=== PATIENT | female | born 1980 | race Caucasian/White ===

== ENCOUNTER 2024-08-01 18:41 | Emergency (ER) | payer OTHER ==
[~2024-08-01] VITALS: Ht 172.7 cm; Wt 101.1 kg
[2024-08-01] MEDS: clindamycin 150mg capsule PO ONE (19:14)
--- NOTE | 2024-08-01 19:52 | Physician Documentation ---
HPI ~ General Chief Complaint: Medication Request Stated Complaint: RT FOOT PAINFUL RASH Time Seen by MD: 19:45 History of Present Illness HPI Comments This is a 44-year-old female history of diabetes who presents with two areas of painful rash to her right ankle and calf, patient reports she is being seen by her primary care provider for this and has been prescribed a topical antifungal though this was making the rash worse so she is switch to an antibiotic today, patient reports that she was unable to make it to the pharmacy to olive picker the prescription before the closed in his requesting 1st dose of antibiotic today. Patient reports no other acute symptoms or concerns and is able to olive picker antibiotic 1st thing in the morning, patient reports pain is currently controlled with [id number] medications. Patient reports no fever, chills, or other systemic symptoms. Medication Reconciliation Allergies: Coded Allergies: Penicillins (Verified Allergy, Unknown, 08/01/24) Past Medical History Past Medical History: Diabetes Review of Systems ROS Sores to lower leg as stated above in the HPI, otherwise all systems are reviewed and negative. Physical Exam Physical Exam Vital Signs: Temperature: 98.1, Source: Oral, Heart Rate: 103, Respiratory Rate: 16, BP: 172/93, Pulse Oximetry: 98, Weight: 101.140 Physical Exam VITALS: Reviewed and as above. GENERAL: Alert, nontoxic appearing, no apparent distress. RESPIRATORY: No increased work of breathing, no respiratory distress, speaking in full clear sentences SKIN: 2 cm x 2 cm round area of erythema to right medial ankle, 2 cm x 2 cm round area of erythema to right lateral calf both areas tender to palpation Progress Results/Orders Results/Orders Completed Orders - FRED JORDAN Clindamycin Capsule (Cleocin Capsule) (08/01/24 18:55) Medications Received in ER Medications (Trade) Dose Ordered Sig/Pillo Route PRN Reason Start Time Stop Time Status Last Admin Dose Admin (Cleocin capsule) 300 mg ONCE ONCE PO 08/01/24 18:55 08/01/24 18:56 DC 08/01/24 19:14 300 MG Vital Signs 08/01/24 08/01/24 18:50 20:21 Temp 98.1 98.6 Pulse 103 99 Resp 16 16 B/P (MAP) 172/93 170/90 Pulse Ox 98 99 Medical Decision Making Findings This 44-year-old female presented to the emergency department requesting dose of antibiotic due to being unable to olive picker antibiotic from pharmacy that was prescribed by primary care provider due to to areas of erythema and tenderness to right lower leg, areas of erythema and tenderness appear to be there cellulitic or result of fungal infection though patient is already being seen and evaluated by primary care provider with referral to Dermatology therefore extensive workup not indicated, patient is otherwise well-appearing with benign physical exam and appropriate for continued outpatient follow up. Patient we will be able to olive picker remaining doses of antibiotic outpatient. Patient provided 1st dose of antibiotic tonight. Patient instructed to follow up as scheduled with primary care provider which he verbalized understanding of. Patient provided return to care precautions which she verbalized understanding of. Differential Dx:Considerations: Include: Adverse circumstances, Economic, Medical services unavail., Medication refill Departure Disposition: HOME / SELF CARE / HOMELESS Impression: Primary Impression: Skin infection Condition: Improved Discharge Instructions: Medicine Refill at the Emergency Department Additional Instructions: You have been provided your 1st dose of antibiotic in the emergency department, continue to follow up with your primary care provider falling plan prescribed by them, olive picker your prescribed antibiotics 1st thing in the morning. Please follow up with your primary care provider in the next few days. Please return to the emergency department for any new or worsening concerning symptoms. Referrals: NO PRIMARY CARE PROVIDER (PCP) Education Educated: Patient Educated regarding: diagnosis, treatment, prognosis, need for follow up Signature Scribe Signature: No scribe Attestation: The note accurately reflects work and decisions made by me.NOE Pérez 08/02/24 01:41 FRED JORDAN Aug 01, 2024 19:52
[2024-08-01 20:21] VITALS: BP 170/90; PULSE 99; RESP 16; TEMP 98.6; O2SAT 99
== END 2024-08-01 20:24 | disposition home or self-care (01) ==
LOC: ER 18:42
DX: L08.9 Local infection of the skin and subcutaneous tissue, unspecified (principal); E11.9 Type 2 diabetes mellitus without complications; Z88.0 Allergy status to penicillin
CPT/HCPCS: 99283